=== PATIENT | male | born 1990 | race Hispanic/Latino ===

== ENCOUNTER 2017-09-09 02:32 | Emergency (ER) | payer MEDICAID ==
[2017-09-09 02:44] VITALS: BP 139/95; PULSE 86; RESP 16; TEMP 97.4; O2SAT 99
--- NOTE | 2017-09-09 04:38 | ED PDOC ---
HPI: Psych/Substance Abuse Time Seen by Provider: 09/09/17 02:45 Chief Complaint (Nursing): Substance Abuse Chief Complaint (Provider): drug abuse History Per: Patient History/Exam Limitations: other (not oriented ) Onset/Duration Of Symptoms: Days Current Symptoms Are (Timing): Still Present Modifying Factor(s): Marijuana Additional Complaint(s): 27 year old male was brought into the ED by EMS for evaluation of drug abuse. Reports he used marijuana. Patient is not oriented at this time. PMD: No Family Provider Past Medical History Reviewed: Historical Data, Nursing Documentation, Vital Signs Vital Signs: Last Vital Signs Temp 97.4 F L 09/09/17 02:40 Pulse 86 09/09/17 02:40 Resp 16 09/09/17 02:40 BP 139/95 H 09/09/17 02:40 Pulse Ox 99 09/09/17 02:40 - Medical History PMH: No Chronic Diseases Denies: Chronic Kidney Disease - Family History Family History: States: Unknown Family Hx - Immunization History Hx Tetanus Toxoid Vaccination: Yes ("last year") Hx Influenza Vaccination: Yes Hx Pneumococcal Vaccination: No - Home Medications Home Medications: Ambulatory Orders Medication Instructions Recorded No Known Home Med 08/01/17 - Allergies Allergies/Adverse Reactions: Allergies Allergy/AdvReac Type Severity Reaction Status Date / Time No Known Allergies Allergy Verified 08/01/17 20:26 Review of Systems Review Of Systems: ROS cannot be obtained secondary to pt's inabilty to answer questions. Psych: Positive for: Other (drug abuse). Negative for: Suicidal ideation ( homicidal ideation) Physical Exam - Reviewed Nursing Documentation Reviewed: Yes Vital Signs Reviewed: Yes - Physical Exam Appears: Positive for: Non-toxic, No Acute Distress Head Exam: Positive for: ATRAUMATIC, NORMAL INSPECTION, NORMOCEPHALIC Skin: Positive for: Normal Color, Warm, Dry Eye Exam: Positive for: EOMI, Normal appearance, PERRL ENT: Positive for: Normal ENT Inspection Neck: Positive for: Normal, Painless ROM, Supple. Negative for: Decreased ROM Cardiovascular/Chest: Positive for: Regular Rate, Rhythm. Negative for: Murmur Respiratory: Positive for: Normal Breath Sounds. Negative for: Decreased Breath Sounds, Accessory Muscle Use, Respiratory Distress Gastrointestinal/Abdominal: Positive for: Normal Exam, Bowel Sounds, Soft. Negative for: Tenderness, Guarding, Rebound Extremity: Positive for: Normal ROM. Negative for: Tenderness, Pedal Edema, Deformity Neurologic/Psych: Positive for: Alert, Oriented (x2), Mood/Affect (fluent speech ), Other (sitting at edge of bed) - ECG O2 Sat by Pulse Oximetry: 99 (RA) Pulse Ox Interpretation: Normal Medical Decision Making Medical Decision Making: Time: 310 Impression: drug abuse and patient not oriented and not safe for discharge. Will discharge patient when alert and oriented x3 Initial Plan: --Alcohol serum --Drug screen --1:1 Observation --Reevaluation 530 Patient is now awake and alert, oriented, has brother at bedside to take him home. Gait steady. Scribe Attestation: Documented by Daren Buchanan, acting as a scribe for Marky Vigil MD Provider Scribe Attestation: All medical record entries made by the Scribe were at my direction and personally dictated by me. I have reviewed the chart and agree that the record accurately reflects my personal performance of the history, physical exam, medical decision making, and the department course for this patient. I have also personally directed, reviewed, and agree with the discharge instructions and disposition. Disposition - Clinical Impression Clinical Impression: Drug abuse - Patient ED Disposition Is Patient to be Admitted: No - Disposition Referrals: [facility] [Outside] Disposition: Routine/Home Disposition Time: 05:29 Condition: IMPROVED Instructions: Drug Abuse and Drug Addiction (DC) Forms: [employer] (Spanish)
== END 2017-09-09 05:30 | disposition home or self-care (01) ==
LOC: H.ER 02:32
DX: F19.10 Other psychoactive substance abuse, uncomplicated (principal)

== ENCOUNTER 2017-09-30 18:21 | Emergency (ER) | payer MEDICAID ==
[2017-09-30 18:21] VITALS: BMI 23.1
[2017-09-30 18:29] VITALS: RESP 16; TEMP 98.3
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
[2017-09-30 20:38] VITALS: BP 132/76; PULSE 86
[2017-10-03 14:01] VITALS: O2SAT 96
== END 2017-09-30 20:46 | disposition home or self-care (01) ==
LOC: H.ER 18:21
DX: F19.10 Other psychoactive substance abuse, uncomplicated (principal)

== ENCOUNTER 2018-02-18 23:48 | Emergency (ER) | payer MEDICAID ==
[2018-02-18 23:48] VITALS: BMI 23.1
[2018-02-18 23:55] VITALS: BP 145/82; PULSE 90; RESP 16; TEMP 98; O2SAT 97
--- NOTE | 2018-02-19 00:45 | ED PDOC ---
HPI: Psych/Substance Abuse Time Seen by Provider: 02/19/18 00:24 Chief Complaint (Nursing): Substance Abuse Past Medical History Vital Signs: Last Vital Signs Temp 98.0 F 02/18/18 23:51 Pulse 90 02/18/18 23:51 Resp 16 02/18/18 23:51 BP 145/82 02/18/18 23:51 Pulse Ox 97 02/18/18 23:51 - Medical History PMH: Denies: Chronic Kidney Disease - Family History Family History: States: Unknown Family Hx - Immunization History Hx Tetanus Toxoid Vaccination: No Hx Influenza Vaccination: No Hx Pneumococcal Vaccination: No - Home Medications Home Medications: Ambulatory Orders Medication Instructions Recorded No Known Home Med 08/01/17 - Allergies Allergies/Adverse Reactions: Allergies Allergy/AdvReac Type Severity Reaction Status Date / Time No Known Allergies Allergy Verified 02/18/18 23:51 - ECG O2 Sat by Pulse Oximetry: 97 Medical Decision Making Medical Decision Makin ED staff was able to speak with patient's brother on the phone who is agreeable to picking patient up in ED. 0110 Patient's mother, Nataliia Carbajal, in ED to bring the patient home. Per mother, patient has a history of PCP abuse. On re-evaluation, patient offers no complaints. On exam, patient remains in no acute distress. Lungs clear to auscultation, cardiac RRR, gait steady in ED without assistance. VSS, stable for discharge. Lab/Diagnostic results d/w the patient in great detail. Diagnosis of PCP and alcohol abuse d/w the patient. Based on history, exam and diagnostic results, plan will be for outpatient follow up. Patient's mother instructed to have patient follow-up with pmd / referral provided / the clinic in 1-2 days without fail. Return to the emergency room at any time for any new or worsening symptoms. Patient's mother states she fully agrees with and understands discharge instructions. States that she agrees with the plan and disposition. Verbalized and repeated discharge instructions and plan. I have given the patient opportunity to ask any additional questions. Disposition - Clinical Impression Clinical Impression: Alcohol intoxication, PCP abuse - Patient ED Disposition Is Patient to be Admitted: No Counseled Patient/Family Regarding: Studies Performed, Diagnosis, Need For Followup - Disposition Referrals: [facility] [Outside] Disposition: Routine/Home Disposition Time: 01:17 Condition: FAIR Additional Instructions: The emergency medical care you received today was directed towards the acute presenting symptoms. If you were prescribed any medication, please fill it and give as directed. It may take several days for your symptoms to resolve. Return to the Emergency Department at any time if symptoms worsen, do not improve, or if any other problems arise. Please contact your doctor in 2 days for re-evaluation and follow up / or call one of the physicians/clinics you have been referred to that are listed on the Patient Visit Information form that is included in your discharge packet. Bring any paperwork you were given at discharge with you along with any medications to your follow up visit. Our treatment cannot replace ongoing medical care by a primary care provider (PCP) outside of the emergency department. Instructions: Effects of Alcohol on Your Health, Drug Abuse and Drug Addiction (DC), Drug Abuse Treatment Forms: [employer] (Norwegian) Print Language: TAMAZIGHT - POA Present On Arrival: None
== END 2018-02-19 01:15 | disposition home or self-care (01) ==
LOC: H.ER 23:48
DX: F10.10 Alcohol abuse, uncomplicated (principal); F16.10 Hallucinogen abuse, uncomplicated

== ENCOUNTER 2018-03-20 16:18 | Emergency (ER) | payer OTHER ==
[2018-03-20 16:25] VITALS: RESP 16; TEMP 99.1; O2SAT 99
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
[2018-03-20 17:01] LABS: BASO % 0.7 % (0.0-2.0); EOS # 0.2 K/uL (0.0-0.7); EOS % 2.9 % (0.0-4.0); HEMOGLOBIN 14.6 g/dL (12.0-18.0); LYMPH % 32.3 % (20.0-40.0); MEAN CELL VOLUME 91.5 fl (80.0-94.0); MEAN CORPUSCULAR HEMOGLOBIN 31.1 pg (27.0-31.0); MEAN CORPUSCULAR HGB CONC 33.9 g/dL (33.0-37.0); MEAN PLATELET VOLUME 8.2 fl (7.2-11.7); MONO # 0.6 K/uL (0.0-0.8); MONO % 9.5 % (0.0-10.0); NEUT # 3.5 K/uL (1.8-7.0); NEUT % 54.6 % (50.0-75.0); NRBC % 0.1 % (0.0-0.0); RBC 4.68 Mil/uL (4.40-5.90); RED CELL DISTRIBUTION WIDTH 13.5 % (11.5-14.5); WHITE BLOOD COUNT 6.3 K/uL (4.8-10.8)
[2018-03-20 17:11] LABS: ALB/GLOB RATIO 1.2 (1.0-2.1); ALBUMIN 4.3 g/dL (3.5-5.0); ALT/SGPT 32 U/L (21-72); AST/SGOT 29 U/L (17-59); BLOOD UREA NITROGEN 10 mg/dl (9-20); CALCIUM 9.6 mg/dL (8.4-10.2); GFR NON-AFRICAN AMERICAN > 60
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
--- NOTE | 2018-03-20 17:29 | CT ---
Date of service: 03/20/2018 PROCEDURE: CT HEAD WITHOUT CONTRAST. HISTORY: r/o ICH COMPARISON: None available. TECHNIQUE: Axial computed tomography images were obtained through the head/brain without intravenous contrast. Radiation dose: Total exam DLP = 845.58 mGy-cm. This CT exam was performed using one or more of the following dose reduction techniques: Automated exposure control, adjustment of the mA and/or kV according to patient size, and/or use of iterative reconstruction technique. FINDINGS: Mild streak artifact obscures evaluation of the skull base. HEMORRHAGE: No intracranial hemorrhage. BRAIN: No mass effect or edema. The garcia-white matter differentiation appears intact. VENTRICLES: No hydrocephalus. CALVARIUM: Unremarkable. PARANASAL SINUSES: Unremarkable as visualized. No significant inflammatory changes. MASTOID AIR CELLS: Unremarkable as visualized. No inflammatory changes. OTHER FINDINGS: None. IMPRESSION: No acute intracranial pathology identified.
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
[2018-03-20 19:26] LABS: BARBITURATES, UR NEGATIVE (NEGATIVE); BENZODIAZEPINES, UR NEGATIVE (NEGATIVE); OPIATES, UR NEGATIVE (NEGATIVE); PHENCYCLIDINE, UR POSITIVE (NEGATIVE)
[2018-03-20 20:11] VITALS: BP 118/63; PULSE 64
--- NOTE | 2018-03-21 09:25 | CARD ---
APPROVED REPORT Date of service: 03/20/2018 EKG Measurement Heart [id number] <Conclusion> Normal sinus rhythm Normal ECG
== END 2018-03-20 20:10 ==
LOC: MERGE 16:18 → H.ER 16:18
DX: R41.82 Altered mental status, unspecified (principal); V43.52XA Car driver injured in collision with other type car in traffic accident, initial encounter; Y92.410 Unspecified street and highway as the place of occurrence of the external cause; F19.10 Other psychoactive substance abuse, uncomplicated
CPT/HCPCS: 70450; 71045; 72125; 80053; 85025; 93005; 99283; G0480

== ENCOUNTER 2018-06-27 16:41 | Emergency (ER) | payer MEDICAID ==
[2018-06-27 16:42] VITALS: BMI 23.1
--- NOTE | 2018-06-27 17:26 | ED PDOC ---
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 Patient notes he spends a lot of time outside, but felt improvement in his symptoms after warming up his hands inside, however, symptoms returned after going back outside. Otherwise, denies numbness, tingling, trauma, change in finger skin color, and fever. PMD: none provided Past Medical History Reviewed: Historical Data, Nursing Documentation, Vital Signs Vital Signs: Last Vital Signs Temp 98.5 F 06/27/18 16:55 Pulse 82 06/27/18 16:55 Resp 16 06/27/18 16:55 BP 145/95 H 06/27/18 16:55 Pulse Ox 97 06/27/18 16:55 - Medical History PMH: No Chronic Diseases Denies: Chronic Kidney Disease - Surgical History Surgical History: No Surg Hx - Family History Family History: States: Unknown Family Hx - Social History Current smoker - smoking cessation education provided: Yes Alcohol: None Drugs: Cannabis - Immunization History Hx Tetanus Toxoid Vaccination: No Hx Influenza Vaccination: No Hx Pneumococcal Vaccination: No - Home Medications Home Medications: Ambulatory Orders Medication Instructions Recorded No Known Home Med 08/01/17 - Allergies Allergies/Adverse Reactions: Allergies Allergy/AdvReac Type Severity Reaction Status Date / Time No Known Allergies Allergy Verified 06/27/18 16:52 Review of Systems ROS Statement: Except As Marked, All Systems Reviewed And Found Negative Constitutional: Negative for: Fever Musculoskeletal: Positive for: Other (cold and swollen digits of bilateral hands) Skin: Negative for: Other (change in color on fingers) Neurological: Negative for: Numbness, Other (tingling) Physical Exam - Reviewed Nursing Documentation Reviewed: Yes Vital Signs Reviewed: Yes - Physical Exam Appears: Positive for: No Acute Distress Skin: Positive for: Normal Color, Warm, Dry. Negative for: Rash, Cyanosis Pulses-Radial (L): 2+ Pulses-Radial (R): 2+ Extremity: Positive for: Normal ROM, Capillary Refill (less than 2 seconds in all digits on bilateral hands), Other (bilateral hands: hands and digits warm with distal sensation intact and equal, but no erythema, swelling, deformity, break in skin integrity, tenderness, or blisters noted) - ECG O2 Sat by Pulse Oximetry: 97 (RA) Pulse Ox Interpretation: Normal Medical Decision Making Medical Decision Making: Time: 1724 Initial Impression: Cold finger without peripheral vascular disease Initial Plan: --Patient advised to keep digits warm at all times and instructed on capillary refill test. Return parameters discussed with patient and he is agreeable for discharge. ---- Scribe Attestation: Documented by Aspen You, acting as a scribe for Driss Peace PA-C. Provider Scribe Attestation: All medical record entries made by the Scribe were at my direction and personally dictated by me. I have reviewed the chart and agree that the record accurately reflects my personal performance of the history, physical exam, medical decision making, and the department course for this patient. I have also personally directed, reviewed, and agree with the discharge instructions and disposition. Disposition - Clinical Impression Clinical Impression: Cold finger without peripheral vascular disease - Patient ED Disposition Is Patient to be Admitted: No - Disposition Referrals: [facility] [Outside] Disposition: Routine/Home Disposition Time: 17:25 Condition: IMPROVED Additional Instructions: KEEP YOUR FINGERS AND HANDS WARM FOLLOW UP WITH [facility] FOR FURTHER EVALUATION RETURN TO ED IMMEDIATELY IF SYMPTOMS WORSEN [place], thank you for letting us take care of you today. Your provider was Jil Garcia MD and you were treated for RIGHT HAND PAIN. The emergency medical care you received today was directed at your acute symptoms. If you were prescribed any medication, please fill it and take as directed. It may take several days for your symptoms to resolve. Return to the Emergency Department if your symptoms worsen, do not improve, or if you have any other problems. Please contact your doctor or call one of the physicians/clinics you have been referred to that are listed on the Patient Visit Information form that is included in your discharge packet. Bring any paperwork you were given at [facility] with you along with any medications you are taking to your follow up visit. Our treatment cannot replace ongoing medical care by a primary care provider outside of the emergency department. Thank you for allowing the [facility] team to be part of your care today. If you had an X-Ray or CT scan: A Radiologist will review the ED reading if any change in treatment is needed we will contact you. If you had a blood, urine, or wound culture: It will take several days for the results, if any change in treatment is needed we will contact you. If you had an STI test: It will take 48 hours for the results. Please call after 1 week if you have not heard back. Instructions: [employer] Forms: [employer] (Tanzanian), [facility] ED School/Work Excuse
[2018-06-27 18:14] VITALS: BP 131/89; PULSE 88; RESP 20; TEMP 98
[2018-06-27 18:40] VITALS: O2SAT 97
== END 2018-06-27 17:45 | disposition home or self-care (01) ==
LOC: H.ER 16:41
DX: S69.91XA Unspecified injury of right wrist, hand and finger(s), initial encounter (principal); F17.200 Nicotine dependence, unspecified, uncomplicated; S69.92XA Unspecified injury of left wrist, hand and finger(s), initial encounter

== ENCOUNTER 2018-07-15 01:13 | Emergency (ER) | payer MEDICAID ==
[2018-07-15 01:13] VITALS: BMI 23.1
[2018-07-15 01:26] VITALS: RESP 16; O2SAT 99
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
[2018-07-15 04:25] VITALS: BP 134/81; PULSE 96; TEMP 98
== END 2018-07-15 03:05 | disposition home or self-care (01) ==
LOC: H.ER 01:13
DX: F16.10 Hallucinogen abuse, uncomplicated

== ENCOUNTER 2018-09-10 22:21 | Emergency (ER) | payer MEDICAID ==
[2018-09-10 22:27] VITALS: BMI 23.7
[2018-09-10 22:29] VITALS: TEMP 97.8
--- NOTE | 2018-09-10 23:29 | ED PDOC ---
HPI: Psych/Substance Abuse Time Seen by Provider: 09/10/18 23:00 Chief Complaint (Nursing): Substance Abuse Chief Complaint (Provider): clearance for incarceration Additional Complaint(s): 28 y/o M with hx of PCP abuse who was brought in by Kendall SMITH under arrest for medical and psychiatric clearance for incarceration. Patient denies any physical complaints at this time or any medical history. Per police, pt used PCP today. Pt denies using PCP and states that he just smokes marijuana occasionally. Denies SI/HI, auditory or visual hallucinations. Past Medical History Vital Signs: Last Vital Signs Temp 97.8 F 09/10/18 22:27 Pulse 103 H 09/10/18 22:27 Resp 16 09/10/18 22:27 BP 144/91 H 09/10/18 22:27 Pulse Ox 100 09/10/18 22:27 - Medical History PMH: Denies: Diabetes, Hepatitis, HIV, HTN, Chronic Kidney Disease, Seizures, Sexually Transmitted Disease - Family History Family History: States: Unknown Family Hx - Immunization History Hx Tetanus Toxoid Vaccination: No Hx Influenza Vaccination: No Hx Pneumococcal Vaccination: No - Home Medications Home Medications: Ambulatory Orders Medication Instructions Recorded No Known Home Med 08/01/17 - Allergies Allergies/Adverse Reactions: Allergies Allergy/AdvReac Type Severity Reaction Status Date / Time No Known Allergies Allergy Verified 09/10/18 22:27 Physical Exam - Reviewed Nursing Documentation Reviewed: Yes Vital Signs Reviewed: Yes - Physical Exam Appears: Positive for: Well Head Exam: Positive for: ATRAUMATIC Skin: Positive for: Normal Color Cardiovascular/Chest: Positive for: Regular Rate, Rhythm Respiratory: Positive for: Normal Breath Sounds Neurological/Psych: Positive for: Awake, Alert, Oriented - ECG O2 Sat by Pulse Oximetry: 100 Medical Decision Making Medical Decision Making: Crisis evaluation Pt seen by heating worker and cleared for discharge as per DR. Clark with diagnosis of adjustment disorder. Pt stable for d/c home. Disposition - Clinical Impression Clinical Impression: Medical clearance for incarceration, Substance abuse - Disposition Referrals: Navarro Mullen MD [Primary Care Provider] - Disposition: Routine/Home Disposition Time: 23:40 Condition: STABLE Additional Instructions: You are medically and psychiatrically stable for incarceration. Instructions: General (DC) Forms: [employer] (Portuguese) Print Language: JAPANESE
[2018-09-10 23:43] VITALS: BP 141/86; PULSE 98; RESP 20
[2018-09-11 06:29] VITALS: O2SAT 100
== END 2018-09-10 23:40 ==
LOC: H.ER 22:21
DX: F19.10 Other psychoactive substance abuse, uncomplicated (principal); F43.20 Adjustment disorder, unspecified; Z00.8 Encounter for other general examination